=== PATIENT | female | born 1945 | race Caucasian/White ===

== ENCOUNTER 2017-05-19 17:38 | Observation (INO) | payer MEDICARE ==
[~2017-05-19] VITALS: Ht 157.5 cm; Wt 50.8 kg
[~2017-05-19 17:38] MED LIST: ADVAIR DISK1 INH; ADVAIR HF1 IN; AMIODARONE200 MG PO; ASPIRIN 81 LOW81 MG PO; B COMPLETE PO; CARDIO-PLUS; CARDIOPLUS PO; CATAPLEX B; CATAPLEX E2; COMBIVENT IN; COMBIVENT RESPIMAT IN; DIGOXIN0.25 MG PO; FLEXERIL5 MG PO; FLONASE NASAL50 MCG; IODINE PO; LANOXIN0.125 MG OR; LEVOTHYROXIN50 MC1 PO; METOPROL TAR25 MG PO; METOPROLOL TART50 MG OR; METOPROLOL50 MG OR; MINERAL PO; MOTRIN400 MG PO; MUCINEX600 MG PO; OMEGA-3 KRILL500 MG PO; PROLAMINE IODINE; PROVENTIL0.083 % IN; SYNTHROID50 MCG PO; ZYPAN; [UNRECOGNIZED DRUG - CODE]; [UNRECOGNIZED DRUG - CODE] PO; [UNRECOGNIZED DRUG - OTHER] PO; [UNRECOGNIZED DRUG - OTHER] PO
[2017-05-19 18:16] LABS: HEMATOCRIT 41.5 % (37.0-47.0); IMMATURE GRANULOCYTES 0.3 % (0.0-1.0); MEAN CELL VOLUME 96.5 fL CALC (80.0-100.0); MEAN CORPUSCULAR HGB 32.6 pG CALC (26.0-32.0); MEAN CORPUSCULAR HGB CONC 33.7 g/L CALC (32.0-36.0); NEUT# 4.99 thou/uL (2.00-7.15); RED BLOOD COUNT 4.3 mill/uL (4.20-5.60)
[2017-05-19 18:51] LABS: ALBUMIN 4.8 g/dL (3.2-5.0); ALKALINE PHOSPHATASE 76 u/l (38-126); ANION GAP 18 (6-22 (CALC)); BILIRUBIN, TOTAL 0.5 mg/dL (0.0-1.4); BUN 24 mg/dL (8-23); BUN/CREATININE RATIO 32 (12-20 (CALC)); CALCIUM 9.2 mg/dL (8.4-10.2); CARBON DIOXIDE 24 mmol/l (22-30); CHLORIDE 106 mmol/l (95-108); CREATININE 0.7 mg/dL (0.5-1.0); GFR > 60 ML/MIN (>=60 (CALC)); GFR FOR AFR.AMER. > 60 ML/MIN (>=60 (CALC)); GLUCOSE 103 mg/dL (82-115); POTASSIUM 4.6 mmol/l (3.5-5.1); SGOT/AST 50 u/l (9-36); SGPT/ALT 43 u/l (11-66); SODIUM 143 mmol/l (137-146); TOTAL PROTEIN 7.9 g/dL (6.3-8.2)
[2017-05-19 19:04] LABS: MYOGLOBIN 35 ng/mL (0 - 62)
[2017-05-19] MEDS ORDERED: ZYBAN150 MG PO (20:42)
[2017-05-19] MEDS ORDERED: PROAIR HFA108 MCG/AC IN (20:45)
[2017-05-19] MEDS ORDERED: [UNRECOGNIZED DRUG - OTHER] (20:48)
[2017-05-19 21:50] VITALS: BP 146/87
[2017-05-19 23:55] VITALS: BP 109/74
[2017-05-20 04:40] VITALS: BP 112/72
[2017-05-20 08:00] VITALS: BP 133/75
[2017-05-20 11:21] VITALS: BP 134/79
[2017-05-20] MEDS ORDERED: PREDNISONE20 MG PO (13:25)
[2017-05-20] MEDS ORDERED: ZITHROMAX250 MG PO (13:25)
== END 2017-05-20 16:10 | disposition home or self-care (01) ==
LOC: ED 17:38 → ED-I 20:10 → ED 20:55 → MS2 20:56
PROVIDERS: Emergency Medicine; ADMIT Internal Medicine; ATTEND Internal Medicine
DX: J20.9 Acute bronchitis, unspecified (principal); J45.901 Unspecified asthma with (acute) exacerbation; E03.9 Hypothyroidism, unspecified; I48.0 Paroxysmal atrial fibrillation; R06.02 Shortness of breath

== ENCOUNTER 2017-05-23 12:35 | Emergency (ER) | payer MEDICARE ==
[~2017-05-23] VITALS: Ht 157.5 cm; Wt 50.0 kg
[~2017-05-23 12:35] MED LIST changes: +PREDNISONE20 MG PO; +PROAIR HFA108 MCG/AC IN; +ZITHROMAX250 MG PO; +ZYBAN150 MG PO; +[UNRECOGNIZED DRUG - OTHER]
[2017-05-23] MEDS ORDERED: VENTOLIN HFA IN (12:59)
[2017-05-23 14:08] LABS: HEMATOCRIT 35.1 % (37.0-47.0); HEMOGLOBIN 11.9 g/dl (12.0-16.0); IMMATURE GRANULOCYTES 0.4 % (0.0-1.0); MEAN CELL VOLUME 95.1 fL CALC (80.0-100.0); MEAN CORPUSCULAR HGB 32.2 pG CALC (26.0-32.0); MEAN CORPUSCULAR HGB CONC 33.9 g/L CALC (32.0-36.0); NEUT# 7.87 thou/uL (2.00-7.15); RED BLOOD COUNT 3.69 mill/uL (4.20-5.60); RED CELL DISTRI WIDTH 13.2 % (11.5-15.5)
[2017-05-23 15:05] LABS: ALBUMIN 3.8 g/dL (3.2-5.0); ALKALINE PHOSPHATASE 72 u/l (38-126); AMYLASE 39 u/l (30-110); ANION GAP 14 (6-22 (CALC)); BILIRUBIN, TOTAL 0.7 mg/dL (0.0-1.4); BUN 18 mg/dL (8-23); BUN/CREATININE RATIO 24 (12-20 (CALC)); CALCIUM 9.2 mg/dL (8.4-10.2); CARBON DIOXIDE 26 mmol/l (22-30); CHLORIDE 104 mmol/l (95-108); CREATININE 0.7 mg/dL (0.5-1.0); GFR > 60 ML/MIN (>=60 (CALC)); GFR FOR AFR.AMER. > 60 ML/MIN (>=60 (CALC)); GLUCOSE 93 mg/dL (82-115); LIPASE 100 u/l (23-300); MAGNESIUM 2.3 mg/dL (1.6-2.3); POTASSIUM 4.2 mmol/l (3.5-5.1); SGOT/AST 69 u/l (9-36); SGPT/ALT 107 u/l (11-66); SODIUM 140 mmol/l (137-146); TOTAL PROTEIN 6.3 g/dL (6.3-8.2)
[2017-05-23 16:41] LABS: URINE BILIRUBIN - DIPSTICK NEGATIVE (NEGATIVE); URINE BLOOD DIPSTICK NEGATIVE (NEGATIVE); URINE COLOR YELLOW; URINE GLUCOSE - DIPSTICK NEGATIVE (NEGATIVE); URINE KETONE NEGATIVE (NEGATIVE); URINE LEUK ESTERASE NEGATIVE (NEGATIVE); URINE NITRITE - DIPSTICK NEGATIVE (Negative); URINE PROTEIN - DIPSTICK NEGATIVE (NEG-TRACE); URINE SPECIFIC GRAVITY <=1.005; URINE UROBILINOGEN - DIPSTICK 0.2 E.U./dL (0.2)
[2017-05-23 16:43] LABS: URINE CLARITY CLEAR
[2017-05-23 16:45] VITALS: BP 103/67
== END 2017-05-23 16:52 | disposition home or self-care (01) ==
LOC: ED 12:35
PROVIDERS: Emergency Medicine
DX: R19.7 Diarrhea, unspecified (principal); R11.10 Vomiting, unspecified; I48.91 Unspecified atrial fibrillation; J44.9 Chronic obstructive pulmonary disease, unspecified

== ENCOUNTER 2018-06-23 23:38 | Observation (INO) | payer MEDICARE ==
[~2018-06-23] VITALS: Ht 154.9 cm; Wt 51.2 kg
[~2018-06-23 23:38] MED LIST changes: +VENTOLIN HFA IN
[2018-06-24] MEDS ORDERED: OMEGA 3340 MG PO (00:10)
[2018-06-24] MEDS ORDERED: [UNRECOGNIZED DRUG - OTHER] (00:12)
[2018-06-24 00:33] LABS: ALBUMIN 4.3 g/dL (3.2-5.0); ALKALINE PHOSPHATASE 98 u/l (38-126); ANION GAP 16 (6-22 (CALC)); BILIRUBIN, TOTAL 0.3 mg/dL (0.0-1.4); BUN 23 mg/dL (8-23); BUN/CREATININE RATIO 28 (12-20 (CALC)); CARBON DIOXIDE 25 mmol/l (22-30); CHLORIDE 104 mmol/l (95-108); CREATININE 0.8 mg/dL (0.5-1.0); GFR > 60 ML/MIN (>=60 (CALC)); GFR FOR AFR.AMER. > 60 ML/MIN (>=60 (CALC)); POTASSIUM 4.1 mmol/l (3.5-5.1); SGOT/AST 21 u/l (9-36); SODIUM 141 mmol/l (137-146); TOTAL PROTEIN 7.5 g/dL (6.3-8.2)
[2018-06-24 00:45] LABS: ACT PARTIAL THROMBO TIME 28.8 SECONDS (20.0-32.5); INTERNATIONAL NORMALIZED RATIO 1.1 RATIO (0.7-1.3); MYOGLOBIN 28 ng/mL (0 - 62)
[2018-06-24 01:33] LABS: URINE BILIRUBIN - DIPSTICK NEGATIVE (NEGATIVE); URINE BLOOD DIPSTICK TRACE-INTACT (NEGATIVE); URINE COLOR YELLOW; URINE GLUCOSE - DIPSTICK NEGATIVE (NEGATIVE); URINE KETONE 15 mg/dL (NEGATIVE); URINE LEUK ESTERASE NEGATIVE (NEGATIVE); URINE NITRITE - DIPSTICK NEGATIVE (Negative); URINE PH 5.5 (4.5-8.0); URINE PROTEIN - DIPSTICK NEGATIVE (NEG-TRACE); URINE SPECIFIC GRAVITY 1.015; URINE UROBILINOGEN - DIPSTICK 0.2 E.U./dL (0.2)
[2018-06-24 01:58] LABS: HEMATOCRIT 35.5 % (37.0-47.0); HEMOGLOBIN 11.9 g/dl (12.0-16.0); IMMATURE GRANULOCYTES 0.2 % (0.0-5.0); MEAN CELL VOLUME 95.7 fL CALC (80.0-100.0); MEAN CORPUSCULAR HGB 32.1 pG CALC (26.0-32.0); MEAN CORPUSCULAR HGB CONC 33.5 g/L CALC (32.0-36.0); NEUT# 4.98 thou/uL (2.00-7.15); RED BLOOD COUNT 3.71 mill/uL (4.20-5.60); RED CELL DISTRI WIDTH 12.5 % (11.5-15.5)
[2018-06-24 03:29] VITALS: BP 117/76
[2018-06-24 07:50] LABS: CHOLESTEROL HDL RATIO 2.2 (<4.4 (CALC))
[2018-06-24 08:20] LABS: TSH, 3RD GENERATION 4.18 uIU/mL (0.47 - 4.68)
[2018-06-24 08:54] VITALS: BP 117/77
[2018-06-24 11:08] VITALS: BP 139/77
[2018-06-24 15:11] VITALS: BP 145/85
[2018-06-24 20:10] VITALS: BP 126/79
[2018-06-24 23:36] VITALS: BP 150/78
[2018-06-25 03:07] VITALS: BP 118/61
[2018-06-25 08:55] VITALS: BP 111/66
[2018-06-25 11:36] VITALS: BP 127/85
[2018-06-25] MEDS ORDERED: LOPRESSOR 550 MG/TAB PO (16:24)
[2018-06-25 16:25] VITALS: BP 123/71
== END 2018-06-25 19:31 | disposition home or self-care (01) ==
LOC: ED 23:38 → ED-I 06-24 02:12 → ED 06-24 02:45 → MS2 06-24 02:46
PROVIDERS: Emergency Medicine; ADMIT Internal Medicine; ATTEND Internal Medicine
DX: I48.0 Paroxysmal atrial fibrillation (principal); I16.0 Hypertensive urgency; I10 Essential (primary) hypertension; J45.909 Unspecified asthma, uncomplicated; E03.9 Hypothyroidism, unspecified; D64.9 Anemia, unspecified; Z79.01 Long term (current) use of anticoagulants; R06.00 Dyspnea, unspecified; R07.2 Precordial pain

== ENCOUNTER 2020-05-19 22:43 | Observation (INO) | payer MEDICARE, MEDICAID ==
[~2020-05-19] VITALS: Ht 154.9 cm; Wt 47.4 kg
[~2020-05-19 22:43] MED LIST changes: +LOPRESSOR 550 MG/TAB PO; +OMEGA 3340 MG PO; +[UNRECOGNIZED DRUG - OTHER]
--- NOTE | 2020-05-19 22:45 | NUR ---
ASSUMED CARE, PT RESTING , SPEAKING TO DR, EKG ORDERED. EMS PLACED IV TO LAC 20G PATENT.
[2020-05-19 23:16] LABS: HEMATOCRIT 35.4 % (37.0-47.0); HEMOGLOBIN 11.6 g/dl (12.0-16.0); IMMATURE GRANULOCYTES 0.2 % (0.0-5.0); MEAN CELL VOLUME 96.2 fL CALC (80.0-100.0); MEAN CORPUSCULAR HGB 31.5 pG CALC (26.0-32.0); MEAN CORPUSCULAR HGB CONC 32.8 g/dL CAL (32.0-36.0); NEUT# 3.57 thou/uL (2.00-7.15); RED BLOOD COUNT 3.68 mill/uL (4.20-5.60); RED CELL DISTRI WIDTH 13.1 % (11.5-15.5)
[2020-05-19] MEDS ORDERED: [UNRECOGNIZED DRUG - OTHER] (23:17)
[2020-05-19 23:39] LABS: D-DIMER 0.18 mg/L (0.19-0.60)
[2020-05-19 23:40] LABS: ACT PARTIAL THROMBO TIME 24.1 SECONDS (20.0-32.5); PROTHROMBIN TIME 10.2 SECONDS (9.0-12.5)
[2020-05-19 23:41] LABS: ALBUMIN 4.3 g/dL (3.2-5.0); ALKALINE PHOSPHATASE 76 u/l (38-126); ANION GAP 8 (6-22 (CALC)); BILIRUBIN, TOTAL 0.3 mg/dL (0.0-1.4); BUN 24 mg/dL (8-23); BUN/CREATININE RATIO 30 (12-20 (CALC)); CHLORIDE 103 mmol/l (95-108); CREATININE 0.8 mg/dL (0.5-1.0); GFR > 60 ML/MIN (>=60 (CALC)); GFR FOR AFR.AMER. > 60 ML/MIN (>=60 (CALC)); LIPASE 87 u/l (23-300); MAGNESIUM 2.1 mg/dL (1.6-2.3); POTASSIUM 4.2 mmol/l (3.5-5.1); SGOT/AST 32 u/l (9-36); SODIUM 140 mmol/l (137-146); TOTAL PROTEIN 7.6 g/dL (6.3-8.2)
[2020-05-19 23:45] LABS: CARBON DIOXIDE 33 mmol/l (22-30)
--- NOTE | 2020-05-19 23:45 | NUR ---
PT RESTING COMFORTABLLY IN BED. PT WAS CHANGED INTO GOWN AND USE BSC. PT HAS STEADY GAIT AND AMBULATION.
[2020-05-20] VITALS (33 sets, daily range): BP systolic 95–151; BP diastolic 53–86
--- NOTE | 2020-05-20 00:46 | NUR ---
PERFORMED WATERS SWAB ON PT AND DELIVERED TO LAB.
--- NOTE | 2020-05-20 00:59 | NUR ---
PT RESTING WITH EYES OPEN, PT FEELING BETTER THAN EARLIER. NO S/S OF DISTRESS.
[2020-05-20 01:06] LABS: URINE BILIRUBIN - DIPSTICK NEGATIVE (NEGATIVE); URINE BLOOD DIPSTICK NEGATIVE (NEGATIVE); URINE COLOR YELLOW; URINE GLUCOSE - DIPSTICK NEGATIVE (NEGATIVE); URINE KETONE NEGATIVE (NEGATIVE); URINE LEUK ESTERASE NEGATIVE (NEGATIVE); URINE NITRITE - DIPSTICK NEGATIVE (Negative); URINE PROTEIN - DIPSTICK NEGATIVE (NEG-TRACE); URINE UROBILINOGEN - DIPSTICK 0.2 E.U./dL (0.2)
--- NOTE | 2020-05-20 01:20 | NUR ---
FAXED SBAR RECEIVED FROM ED, ED CALLS FOR BED ASSIGNMENT, ICU #4 ASSIGNED FOR PT.
--- NOTE | 2020-05-20 01:21 | NUR ---
PT'S BP WAS TRENDING LOW TITRATED CARDIZEM DRIP TO 5MG/HR. PT ALSO ASKED TO USE BSC.
--- NOTE | 2020-05-20 01:42 | NUR ---
TELEPHONE REPORT RECEIVED FROM Julieta GOSS RN IN ED, ICU #4 PREPARED TO RECEIVE PT.
--- NOTE | 2020-05-20 01:46 | NUR ---
PT ADMITTED TO ICU FOR OBSERVATION. REPORT GIVEN TO EVELIA
--- NOTE | 2020-05-20 01:58 | NUR ---
TO ICU VIA STRETCHER WITH AIRCRAFT DESIGNER AND CARDIZEM DRIP ON PUMP. PT A/O. NAD. VSS.
--- NOTE | 2020-05-20 02:02 | NUR ---
PT ARRIVES TO UNIT @ 0202 VIA STRETCHER ACCOMPANIED BY Julieta GOSS RN, PT AMBULATORY TO BED. GAIT APPEARS BALANCED/STEADY. BED SCAL WEIGHT 105 LBS. PT ORIENTED TO ROOM, BED, TV, LIGHT, AND CALL DUPREE SYSTEM. TOILETRIES AND FRESH WATER PROVIDED. APPLE JUICE PROVIDED PER PTS REQUEST. CARDIZEM INFUSING TO L-AC 18G EMS SITE. AFIB 60S AND 70S ON MONITOR. CALL DUPREE WITHIN REACH, AGREES TO CALL PRN
--- NOTE | 2020-05-20 02:45 | NUR ---
ADMISSION INTAKE AND ASSESMENT COMPLETE. PLAN OF CARE REVIEWED. PT VERBALIZES UNDERSTANDING AND DENIES QUSTIONS. PT DENIES ANY NEEDS AT THIS TIME. CALL DUPREE WITHIN REACH, AGREES TO CALL PRN.
[2020-05-20] MEDS ORDERED: [UNRECOGNIZED DRUG - OTHER] (04:13)
[2020-05-20] MEDS ORDERED: [UNRECOGNIZED DRUG - OTHER] (04:16)
[2020-05-20] MEDS ORDERED: ZYPAN (04:17)
[2020-05-20] MEDS ORDERED: [UNRECOGNIZED DRUG - REMARK] (04:17)
--- NOTE | 2020-05-20 04:41 | NUR ---
PT APPEARS TO BE SLEEPING COMFORTABLY, LAYING IN BED WITH EYES CLOSED. NO APPARENT DISTRESS, RESPIRATIONS REGULAR AND UNLABORED. CALL DUPREE REMAINS WITHIN REACH.
--- NOTE | 2020-05-20 05:09 | NUR ---
SCHUYLER CONCEPCION IN ROOM OBTAINING EKG, EKG READS AFIB 68 BPM.
[2020-05-20 05:57] LABS: HEMATOCRIT 33.5 % (37.0-47.0); HEMOGLOBIN 10.9 g/dl (12.0-16.0); IMMATURE GRANULOCYTES 0.2 % (0.0-5.0); MEAN CELL VOLUME 95.4 fL CALC (80.0-100.0); MEAN CORPUSCULAR HGB 31.1 pG CALC (26.0-32.0); MEAN CORPUSCULAR HGB CONC 32.5 g/dL CAL (32.0-36.0); NEUT# 3.18 thou/uL (2.00-7.15); RED BLOOD COUNT 3.51 mill/uL (4.20-5.60); RED CELL DISTRI WIDTH 12.9 % (11.5-15.5)
[2020-05-20 06:21] LABS: ALBUMIN 3.7 g/dL (3.2-5.0); ALKALINE PHOSPHATASE 68 u/l (38-126); ANION GAP 7 (6-22 (CALC)); BUN 17 mg/dL (8-23); BUN/CREATININE RATIO 29 (12-20 (CALC)); CARBON DIOXIDE 29 mmol/l (22-30); CHLORIDE 106 mmol/l (95-108); CREATININE 0.6 mg/dL (0.5-1.0); GFR > 60 ML/MIN (>=60 (CALC)); GFR FOR AFR.AMER. > 60 ML/MIN (>=60 (CALC)); POTASSIUM 3.8 mmol/l (3.5-5.1); SGOT/AST 26 u/l (9-36); SODIUM 139 mmol/l (137-146); TOTAL PROTEIN 6.4 g/dL (6.3-8.2)
[2020-05-20 06:24] LABS: BILIRUBIN, TOTAL 0.5 mg/dL (0.0-1.4)
--- NOTE | 2020-05-20 07:10 | NUR ---
REPORT RECEIVED FROM LONNY ALTAMIRANO. PT RESTING IN BED SEMI FOWLERS WITH EYES CLOSED; AWAKENS TO VERBAL STIMULI; ALERT AND OREINTED. DENIES ANY PAIN AT THIS TIME INCLUDING CHEST AND HEAD PAIN. RESPIRATIONS EVEN AND UNLABORED ON ROOM AIR. ALESHA SOB AND NAUSEA. CARDIZEM DRIP INFUSING AT 5 MG/HR WITH KVO NS INTO 22G EMS SITE TO LAC; APPEAR HEALTHY. CURRENLTY AFIB WITH HEART RATE 57-67 AND BP 104/61. NITRO PASTE TO RIGHT UPPER CHEST. AFEBRILE. POC REVIEWED. PT ENCOURAGED TO VERABLIZE CONCERNS. STATES UNDERSTANDING. SAFETY MEASURES IN PLACE. CALL LIGHT WITHIN REACH.
--- NOTE | 2020-05-20 07:30 | NUR ---
CARDIZEM DRIP DISCONTINUED DUE TO CONTROLLED HEART RATE ALONG WITH KVO NS. NITRO PASTE REMOVED FROM FROM CHEST. PT SITTING UP IN BED FOR BREAKFAST; DECLINES GETTING UP INTO CHAIR FOR MEAL.
--- NOTE | 2020-05-20 08:18 | NUR ---
DR. BLANCHARD AT BEDSIDE. NEW ORDERS RECEIVED. DR. SORIA OFFICE NOTIFIED OF CONSULT.
--- NOTE | 2020-05-20 09:27 | NUR ---
UP TO [facility] [place] FOR VOID AND BOWEL MOVEMENT WITH STAND BY ASSIST. PT INDEPENDENT. FIRST TIME DOSE OF METOPROLOL GIVEN; PT REPORTS THAT SHE HAS TAKEN A BETA MARY IN THE PAST AND IT WAS HELPFUL; EDUCATED ON MEDICATION.
--- NOTE | 2020-05-20 09:55 | NUR ---
KALIA TORRES AT BEDSIDE FOR CARDIOLOGY CONSULT.
--- NOTE | 2020-05-20 10:47 | NUR ---
NIECE FROM [place], ADALBERT[place], CALLED FOR UPDATE. PT GAVE VERBAL PERMISSION TO UPDATE FAMILY. PT ALSO SPOKE WITH HER ON PORTABLE UNIT PHONE.
--- NOTE | 2020-05-20 12:19 | NUR ---
PT REPORTED SOME DIFFICULTY SWALLOWING FOOD DESCRIBED A CHUNK OF CHICKEN GETTING STUCK IN HER ESOPHAGUS AND COMING BACK UP; ABLE TO EVENTUALLY SWALLOW FOOD WTIH FLUIDS. STATES THAT THIS HAPPENS TO HER OCCASIONALLY AND SHE WANTS TO MENTION IT. DIET CONSISTENCY CHANGED TO MECHANICAL SOFT AND PT ENCOURAGED TO EAT SLOWLY AND TAKE SMALL BITES WITH FREQUENT SIPS OF WATER.
--- NOTE | 2020-05-20 14:00 | NUR ---
RESTING WITH EYES CLOSED AND NO SINGS OF DISTRESS. VSS.
--- NOTE | 2020-05-20 16:35 | NUR ---
SITTING UP IN BED; REQUESTS APPLE JUICE. NO OTHER REQUESTS OR CONCERNS AT THIS TIME. CALL LIGHT WITHIN REACH.
--- NOTE | 2020-05-20 19:45 | NUR ---
SITTING UP IN BED. ALERT AND ORIENTED. DENIES ANY ALLEN PAIN OR DISCOMFORTS. VSS. RESP NON-LABORED. RA O2 SAT 97% SALINE LOCK INTACT IN LAC. DEVELOPMENT VICE PRESIDENT SHOWS AFIB/FLUTTER, HR 80'S. DISCUSSED PLAN OF CARE. DENIES NEEDS AT THIS TIME. CALL DUPREE IN REACH.
--- NOTE | 2020-05-20 22:20 | NUR ---
RESTING QUIETLY IN BED. VSS. AFIB ON MONITOR, HR 70'S.
[2020-05-21] VITALS (8 sets, daily range): BP systolic 101–155; BP diastolic 54–82
--- NOTE | 2020-05-21 00:05 | NUR ---
VSS. RESP NON-LABORED. AFIB/FLUTTER ON MONITOR.
--- NOTE | 2020-05-21 02:01 | NUR ---
RESTING WITH EYES CLOSED. RESP NON-LABORED. VSS. AFIB/FLUTTER ON MONITOR.
--- NOTE | 2020-05-21 04:00 | NUR ---
SLEEPS SOUNDLY. RESP NON-LABORED. AFIB/FLUTTER ON MONITOR.
--- NOTE | 2020-05-21 07:05 | NUR ---
pt resting in bed with eyes closed; no apparent distress noted; easily aroused; offers no complaints; assessment completed at this time; pt alert and oriented; denies pain; deny chest palpitations; resp even and unlabored; lungs clear; skin color wnl; ra; hr irreg; strong pulses; no edema noted; afib on monitor; abd soft with bs present; no bm noted per specifications writer; no admits to voiding without complication; no urine to inspect at this time; bsc; #18 ems site flushed and patent to lac; no redness or edema noted at site; plan of care/ am meds explained; call light within reach; will continue to monitor
--- NOTE | 2020-05-21 08:30 | NUR ---
Dr Albert present at bedside to assess pt and discuss plan of care
[2020-05-21] MEDS ORDERED: LOPRESSOR25 MG PO (08:35)
--- NOTE | 2020-05-21 08:55 | NUR ---
awake in bed; offers no complaints; no apparent distress noted; iv intact; call light within reach; will continue to monitor
--- NOTE | 2020-05-21 09:04 | NUR ---
am med explained and admin; will continue to monitor
--- NOTE | 2020-05-21 10:08 | NUR ---
discharge instructions reviewed in detail with pt; pt states understanding; iv removed with catheter tip intact; pt awaiting ride
--- NOTE | 2020-05-21 10:37 | NUR ---
awake in bed conversing on cell phone; no apparent distress noted; awaiting pickup
--- NOTE | 2020-05-21 10:53 | NUR ---
Discharge instructions given. Patient verbalizes understanding of same. Discharged in stable condition via Wheelchair to Home with family. All belongings sent with pt.
== END 2020-05-21 10:53 | disposition home or self-care (01) ==
LOC: ED 22:43 → ED-I 05-20 00:09 → ED 05-20 00:10 → ICU 05-20 00:10
PROVIDERS: ADMIT Internal Medicine; ATTEND Internal Medicine
DX: I48.21 Permanent atrial fibrillation (principal); I49.5 Sick sinus syndrome; I10 Essential (primary) hypertension; J45.909 Unspecified asthma, uncomplicated; E03.9 Hypothyroidism, unspecified; K21.9 Gastro-esophageal reflux disease without esophagitis; Z91.14 Patient's other noncompliance with medication regimen; Z20.828 Contact with and (suspected) exposure to other viral communicable diseases